=== PATIENT | female | born 1965 | race Caucasian/White ===

== ENCOUNTER 2019-09-27 15:01 | Emergency (ER) | payer MEDICARE ==
[~2019-09-27] VITALS: Ht 152.4 cm; Wt 90.9 kg
[2019-09-27 15:20] VITALS: BP 148/72; Ht 152.4 cm; Wt 90.9 kg
[2019-09-27] MEDS ORDERED: MOBIC7.5 MG PO (15:58)
== END 2019-09-27 16:30 | disposition home or self-care (01) ==
LOC: D.ER 15:01
DX: S92.501A Displaced unspecified fracture of right lesser toe(s), initial encounter for closed fracture (principal); S90.31XA Contusion of right foot, initial encounter; W22.8XXA Striking against or struck by other objects, initial encounter; Y93.9 Activity, unspecified; Y92.9 Unspecified place or not applicable